=== PATIENT | female | born 1990 | race Caucasian/White ===

== ENCOUNTER 2017-11-01 21:11 | Inpatient (IN) | payer OTHER ==
[~2017-11-01] VITALS: Ht 170.2 cm; Wt 81.6 kg
[~2017-11-01 21:11] MED LIST: ZOFRAN4 M2 PO
[2017-11-01 22:21] VITALS: BP 118/73
[2017-11-02 03:20] LABS: ABSOLUTE BASOPHIL COUNT 0.1 /CUMM (0.0-0.2); ABSOLUTE EOSINOPHIL COUNT 0.2 /CUMM (0.0-0.7); ABSOLUTE GRANULOCYTE CT 10.2 /CUMM (1.4-6.5); ABSOLUTE LYMPH COUNT 1.9 /CUMM (1.2-3.4); ABSOLUTE MONOCYTE COUNT 0.6 /CUMM (0.10-0.60); BASOPHIL % 0.4 % (0.0-2.0); EOSINOPHIL % 1.3 % (0-5); GRANULOCYTE % 78.8 % (42.2-75.2); HEMATOCRIT 33.9 % (37-47); MEAN CORPUSCULAR HGB 30.1 PG (27.0-31.0); MEAN CORPUSCULAR HGB CONC 33.3 G/DL (33.0-37.0); MEAN CORPUSCULAR VOLUME 90.5 FL (81.0-99.0); MEAN PLATELET VOLUME 8.7 FL (7.4-10.4); PLATELET COUNT 245 /CUMM (130-400); RBC DISTRIBUTION WIDTH 13.4 % (11.5-14.5); RED BLOOD CELL CT 3.74 /CUMM (4.20-5.40); WHITE BLOOD CELL COUNT 12.9 /CUMM (4.8-10.8)
--- NOTE | 2017-11-02 06:51 | PN- OBGYN ---
Surgical Brief Attending Note Brief Attending Note: Events from time of evaluation and admission to now. Patient is a 27 year old female at 39 weeks with complicated by anxiety and ADD and history of tobacco use. She presented to my office on for evaluation. Membranes were stripped. She was GBBS negative. She went home and started having painful contractions. She was 1 cm. At 1700 on 11/01/17 she was examined and found to be 2 cm and contractions every 2 minutes. She was discharged. At 8 pm called back and was "crying with the pain". She was brought back in at 2000 and found to be 2 cm. I admitted for therapeutic rest. She got morphine and vistaril. Catagory 1 tracing up to that time. Prior to epidural she was 100.6 and no other findings of chorioamnionitis. Epidural placed by appx 2 am. I was called to see patient at 0630 as tracing was showing minimal variability but no decelerations. Bp 100/60 160 minimial variability. VE 7/100/-1 and no molding AROM clear fluid and FSE placed. Scalp stimulation obtained. T100.3 Active labor at present in this 27 year old at 39 weeks and GBBS negative Two intrapartum temperatures but clear fluid and no fundal tenderness. I will start empiric antibiotics for clinical chorioamnionitis. She is PCN allergic so I will start on Clindamycin and Gentamicin. Increase fluids to 150 cc per hour to account for insensible losses Green is in place and draining clear urine Variability improved since AROM Tylenol total of 975 mg given. Anticipate vaginal and will check at 9 am. Peds at delivery and placenta to be sent for evaluation.
--- NOTE | 2017-11-02 08:50 | PN- OBGYN ---
Surgical Brief Attending Note Brief Attending Note: Comfortable with contractions 100/50 VE 8-9/100/-1 ROT rotation No molding Catagory 1 tracing and scalp stim noted Clindamycin Gentamicin Para 0 in active labor with clinical chorioamnionitis. Postive cervical change noted Continue antibiotics per protocol. Anticipate vaginal
--- NOTE | 2017-11-02 10:10 | PN- OBGYN ---
Surgical Brief Attending Note Brief Attending Note: T99.2 108/60 Catagory 1 tracing Scalp stim obtained Fully dilated -1 station OA rotation no molding Clinical chorioamnionitis PPH precautions at delivery Continue on antibiotics Peds at delivery. Reassess for descent when pushing for one hour.
--- NOTE | 2017-11-02 11:49 | Labor & Delivery Summary ---
Delivery Summary Vaginal Delivery: Vaginal: spontaneous Episiotomy/Lacerations: Type: 2nd degree fourchette Repair: 3-0 vicryl Anesthesia: epidural Placenta: Placenta: spontanteous, normal, 3 vessel, To pathology and cultures sent Anesthesia: Epidural Cord PH Value: pending Apgars - 1 Min: 9 Apgars - 5 Min: 9 Additional Comments: Delivered through intact perineum Shoulders passed spontaneously Left shoulder anterior No nuchal cord EBL 300 cc Fundus firm Rectum intact Right sulcus with no laceration however bruising noted.
[2017-11-03 09:14] LABS: ABSOLUTE BASOPHIL COUNT 0 /CUMM (0.0-0.2); ABSOLUTE EOSINOPHIL COUNT 0.3 /CUMM (0.0-0.7); ABSOLUTE GRANULOCYTE CT 7.9 /CUMM (1.4-6.5); ABSOLUTE LYMPH COUNT 2.3 /CUMM (1.2-3.4); ABSOLUTE MONOCYTE COUNT 0.7 /CUMM (0.10-0.60); BASOPHIL % 0.2 % (0.0-2.0); EOSINOPHIL % 2.7 % (0-5); GRANULOCYTE % 70.1 % (42.2-75.2); HEMATOCRIT 32.3 % (37-47); MEAN CORPUSCULAR HGB 29.9 PG (27.0-31.0); MEAN CORPUSCULAR VOLUME 90.8 FL (81.0-99.0); MEAN PLATELET VOLUME 9.4 FL (7.4-10.4); PLATELET COUNT 264 /CUMM (130-400); RED BLOOD CELL CT 3.56 /CUMM (4.20-5.40); WHITE BLOOD CELL COUNT 11.3 /CUMM (4.8-10.8)
--- NOTE | 2017-11-03 10:26 | PN- OBGYN ---
Surgical Brief Attending Note Brief Attending Note: Seen and evaluated Vitals per paper record Back pain improved with lidocaine patch Some itching in vaginal area Breast feedign without incident Lungs clear Abdomen soft and fundus firm no tenderness Mild pedal edema Back with mild tenderness to epidural site no cvat WBC 11 and hct 33 PPD#1 s/p vaginal . Intrapartum fever noted No findings of metritis. Continue on probiotics for GI benefit and reduce AAD ADD and anxiety. SW consult appreciated and she may restart her medication. Tobacco use. Restart NRT 7 mg daily. Breast feeding counseling [facility] 11/04/17
--- NOTE | 2017-11-04 09:28 | PN- OBGYN ---
Surgical Brief Attending Note Brief Attending Note: Seen and evaluated Vitals per paper record No complaints and back discomfort improved Dc home today with CBC follow up this week I will coordinate for VNA for her this coming week 4 week follow up with provider She may contact Psychiatrist regarding restart of ADD medications. S/p flu, tdap and pneumovax Continue on NRT daily. Breast feeding care reviewed pain mgmt discussed VTE risks reviewed Continue probiotics to reduce RR of depression and anxiety.
== END 2017-11-04 11:50 | DRG 560 ==
LOC: CBCO 21:11 → GNO 21:55
PROVIDERS: Obstetrics & Gynecology
PROC: 10E0XZZ Delivery of Products of Conception, External Approach (ICD-10-PCS; principal; 2017-11-02)
PROC: 0HQ9XZZ Repair Perineum Skin, External Approach (ICD-10-PCS; principal; 2017-11-02)
PROC: 10907ZC Drainage of Amniotic Fluid, Therapeutic from Products of Conception, Via Natural or Artificial Opening (ICD-10-PCS; 2017-11-02)
DX: O41.1230 Chorioamnionitis, third trimester, not applicable or unspecified (principal); O70.0 First degree perineal laceration during delivery; F41.9 Anxiety disorder, unspecified; Z37.0 Single live birth; Z3A.39 39 weeks gestation of pregnancy
CPT/HCPCS: 87070; GNOP; GNOS; 80307; 81001; 87086; 88307; G0378; G0463; J0131; J1580; J1885; J7120